=== PATIENT | female | born 1975 | race Caucasian/White ===

== ENCOUNTER 2020-07-11 08:06 | Day surgery (SDC) | payer MEDICAID ==
[2020-07-11] VITALS (9 sets, daily range): BP systolic 117–161; BP diastolic 74–122
[~2020-07-11] VITALS: Ht 172.7 cm; Wt 76.2 kg
[2020-07-11] MEDS ORDERED: albumin 25% 100mL bottle x 1 IV PRN (08:30)
[2020-07-11] MEDS ORDERED: POTA10CA44 PO (08:32)
[2020-07-11] MEDS ORDERED: FURO40TA4 PO (08:32)
== END 2020-07-11 11:00 | disposition home or self-care (01) ==
LOC: SSTAY O 08:06
PROVIDERS: ATTEND Radiology Diagnostic Radiology
DX: R18.8 Other ascites (principal); K74.60 Unspecified cirrhosis of liver; F32.9 Major depressive disorder, single episode, unspecified; F10.10 Alcohol abuse, uncomplicated; F17.210 Nicotine dependence, cigarettes, uncomplicated; Z79.899 Other long term (current) drug therapy
CPT/HCPCS: 49083; P9047